=== PATIENT | male | born 1990 | race Two or more races ===

== ENCOUNTER 2018-01-24 09:23 | Emergency (ER) | payer SELFPAY | END 2018-01-24 10:35 | disposition home or self-care (01) | LOC: ER 09:23 | DX: J20.9 Acute bronchitis, unspecified (principal); J02.9 Acute pharyngitis, unspecified; J01.00 Acute maxillary sinusitis, unspecified; J01.10 Acute frontal sinusitis, unspecified; Z88.0 Allergy status to penicillin | CPT/HCPCS: 99283 ==

== ENCOUNTER 2018-02-03 09:28 | Emergency (ER) | payer SELFPAY ==
[2018-02-03 10:13] LABS: ADD MAN DIFF? NO
[2018-02-03 10:16] LABS: BASO % 1 % (0-3); EOS # 0.2 x10^3/uL (0.0-0.7); EOS % 4 % (0-3); HEMATOCRIT 44.5 % (39.0-53.0); HEMOGLOBIN 15.2 g/dL (13.0-17.5); LYMPH % 34 % (24-48); MEAN CORPUSCULAR HEMOGLOBIN 30 pg (25-35); MEAN CORPUSCULAR HGB CONC 34 g/dL (31-37); MEAN CORPUSCULAR VOLUME 87 fL (79-100); MONO # 0.6 x10^3/uL (0.0-1.1); MONO % 9 % (0-9); NEUT # 3.2 x10^3uL (1.8-7.7); NEUT % 53 % (31-73); PLATELET COUNT 234 x10^3/uL (140-400); RED BLOOD COUNT 5.14 x10^6/uL (4.30-5.70); RED CELL DISTRIBUTION WIDTH 12.9 % (11.5-14.5); WHITE BLOOD COUNT 6.1 x10^3/uL (4.0-11.0)
[2018-02-03 10:31] LABS: BILIRUBIN,URINE NEGATIVE (NEG); COLOR,URINE YELLOW; GLUCOSE,URINE NEGATIVE (NEG); NITRITE,URINE NEGATIVE (NEG); PH,URINE 5.5; PROTEIN,URINE NEGATIVE (NEG-TRACE); UROBILINOGEN,URINE 0.2 mg/dL (0.2 mg/dL)
[2018-02-03 10:39] LABS: BACTERIA,URINE 0 /HPF (0-FEW); RBC,URINE 0 /HPF (0-2); SPERM,URINE PRESENT /HPF; WBC,URINE OCC /HPF (0-4)
[2018-02-03 10:41] LABS: CLARITY,URINE CLEAR
[2018-02-03 10:55] LABS: ANION GAP 11 (6-14); BLOOD UREA NITROGEN 13 mg/dL (8-26); BUN/CREATININE RATIO 19 (6-20); CALCIUM 8.8 mg/dL (8.5-10.1); CARBON DIOXIDE 22 mmol/L (21-32); CHLORIDE 104 mmol/L (98-107); CREATININE 0.7 mg/dL (0.7-1.3); GFR 135.3; GLUCOSE 106 mg/dL (70-99); POTASSIUM 4.2 mmol/L (3.5-5.1); SODIUM 137 mmol/L (136-145)
[2018-02-03 11:01] LABS: ALBUMIN 3.7 g/dL (3.4-5.0); ALK PHOS 79 U/L (46-116); ALT (SGPT) 70 U/L (16-63); AST (SGOT) 35 U/L (15-37); TOTAL BILIRUBIN 0.6 mg/dL (0.2-1.0); TOTAL PROTEIN 7.4 g/dL (6.4-8.2)
[2018-02-03] MEDS: AZITHROMYCIN 250 MG TABLET. PO (11:43)
== END 2018-02-03 11:50 | disposition home or self-care (01) ==
LOC: ER 09:28
DX: R30.0 Dysuria (principal); R21 Rash and other nonspecific skin eruption; M54.5 Low back pain; Z87.442 Personal history of urinary calculi; Z88.0 Allergy status to penicillin
CPT/HCPCS: 36415; 80053; 81001; 85025; 87491; 87591; 99284; Q0144

== ENCOUNTER 2018-08-14 18:45 | Emergency (ER) | payer SELFPAY ==
[~2018-08-14] VITALS: Ht 180.3 cm; Wt 93.0 kg
[~2018-08-14 18:45] MED LIST: AZIT250T PO; BENZ100C PO; FLUT9.9S NS; PRED50TA PO; SULF1TAB24 PO; VENTOLIN HFA18 GM INH
[2018-08-14] MEDS ORDERED: IV NORMAL SALINE 1000ML BAG 1,000 ML IV ONE (19:30)
[2018-08-14] MEDS ORDERED: ONDANSETRON PF 4 MG/2 ML VIAL. IV ONE (19:30)
[2018-08-14 19:47] LABS: BASO % 0 % (0-3); EOS % 0 % (0-3); HEMATOCRIT 46.6 % (39.0-53.0); HEMOGLOBIN 16.1 g/dL (13.0-17.5); LYMPH # 0.6 x10^3/uL (1.0-4.8); LYMPH % 5 % (24-48); MEAN CORPUSCULAR HEMOGLOBIN 30 pg (25-35); MEAN CORPUSCULAR HGB CONC 35 g/dL (31-37); MEAN CORPUSCULAR VOLUME 87 fL (79-100); MONO # 0.6 x10^3/uL (0.0-1.1); MONO % 5 % (0-9); NEUT % 91 % (31-73); PLATELET COUNT 273 x10^3/uL (140-400); RED BLOOD COUNT 5.35 x10^6/uL (4.30-5.70); RED CELL DISTRIBUTION WIDTH 13.2 % (11.5-14.5); WHITE BLOOD COUNT 13.2 x10^3/uL (4.0-11.0)
[2018-08-14 19:58] LABS: CALCIUM 9.2 mg/dL (8.5-10.1); CREATININE 1.2 mg/dL (0.7-1.3); GFR 72.6; POTASSIUM 3.9 mmol/L (3.5-5.1)
[2018-08-14 20:00] VITALS: BP 130/73
[2018-08-14 20:03] LABS: ALBUMIN 4.1 g/dL (3.4-5.0); ALBUMIN/GLOBULIN RATIO 0.9 (1.0-1.7); TOTAL BILIRUBIN 0.5 mg/dL (0.2-1.0); TOTAL PROTEIN 8.6 g/dL (6.4-8.2)
[2018-08-14 20:05] LABS: % BANDS 2 % (0-9); % LYMPHS 4 % (24-48); % MONOS 4 % (0-10); % SEGS 90 % (35-66); PLT ESTIMATE ADEQUATE (ADEQUATE)
[2018-08-14] MEDS ORDERED: ONDA4TAB7 PO (20:19)
--- NOTE | 2018-08-14 20:51 | PHYS DOC ---
Past Medical History Past Medical History: No Pertinent History, Other Additional Past Medical Histor: bronchitis Past Surgical History: No Surgical History Alcohol Use: None Drug Use: None Adult General Chief Complaint Chief Complaint: NAUSEA/VOMITING/DIARRHA HPI HPI Patient is a 27 year old is male presenting with nausea vomiting and diarrhea greater than 10 episodes of both no abdominal pain just some nausea and nonbloody it's important prior to the onset symptoms mother is an ER with identical symptoms. Review of Systems Review of Systems Constitutional: Denies fever or chills [] Eyes: Denies change in visual acuity, redness, or eye pain [] HENT: Denies nasal congestion or sore throat [] Respiratory: Denies cough or shortness of breath [] Musculoskeletal: Denies back pain or joint pain [] Integument: Denies rash or skin lesions [] Neurologic: Denies headache, focal weakness or sensory changes [] Endocrine: Denies polyuria or polydipsia [] All other systems were reviewed and found to be within normal limits, except as documented in this note. Current Medications Current Medications Current Medications Medications (Trade) Dose Ordered Sig/Laura Start Time Stop Time Status Last Admin Dose Admin Ondansetron HCl (Zofran) 4 mg 1X ONCE 08/14/18 19:30 08/14/18 19:32 DC 08/14/18 19:44 4 MG Sodium Chloride 1,000 ml @ 1,000 mls/hr 1X ONCE 08/14/18 19:30 08/14/18 20:29 DC 08/14/18 19:43 1,000 MLS/HR Allergies Allergies Allergies Coded Allergies Type Severity Reaction Last Updated Verified Penicillins Allergy Intermediate HIVES 01/24/18 Yes Physical Exam Physical Exam Constitutional: Well developed, well nourished, no acute distress, non-toxic appearance. [] HENT: Normocephalic, atraumatic, bilateral external ears normal, oropharynx moist, no oral exudates, nose normal. [] Eyes: PERRLA, EOMI, conjunctiva normal, no discharge. [] Neck: Normal range of motion, no tenderness, supple, no stridor. [] Pulmonary: Normal respiratory effort no increased work of breathing no obvious chest wall trauma Abdomen: Bowel sounds normal, soft, no tenderness, no masses, no pulsatile masses. Dry Skin: Warm, dry, no erythema, no rash. [] Back: No tenderness, no CVA tenderness. [] Extremities: No tenderness, no cyanosis, no clubbing, ROM intact, no edema. [] Neurologic: Alert and oriented X 3, normal motor function, normal sensory function, no focal deficits noted. [] Psychologic: Affect normal, judgement normal, mood normal. [] Current Patient Data Vital Signs Vital Signs Date Time Temp Pulse Resp B/P (MAP) Pulse Ox O2 Delivery O2 Flow Rate FiO2 08/14/18 20:00 95 18 130/73 (92) 99 08/14/18 19:18 98.6 Room Air 98.6 Lab Values Laboratory Tests Test 08/14/18 19:34 White Blood Count 13.2 x10^3/uL (4.0-11.0) H Red Blood Count 5.35 x10^6/uL (4.30-5.70) Hemoglobin 16.1 g/dL (13.0-17.5) Hematocrit 46.6 % (39.0-53.0) Mean Corpuscular Volume 87 fL (79-100) Mean Corpuscular Hemoglobin 30 pg (25-35) Mean Corpuscular Hemoglobin Concent 35 g/dL (31-37) Red Cell Distribution Width 13.2 % (11.5-14.5) Platelet Count 273 x10^3/uL (140-400) Neutrophils (%) (Auto) 91 % (31-73) H Lymphocytes (%) (Auto) 5 % (24-48) L Monocytes (%) (Auto) 5 % (0-9) Eosinophils (%) (Auto) 0 % (0-3) Basophils (%) (Auto) 0 % (0-3) Neutrophils # (Auto) 12.0 x10^3uL (1.8-7.7) H Lymphocytes # (Auto) 0.6 x10^3/uL (1.0-4.8) L Monocytes # (Auto) 0.6 x10^3/uL (0.0-1.1) Eosinophils # (Auto) 0.0 x10^3/uL (0.0-0.7) Basophils # (Auto) 0.0 x10^3/uL (0.0-0.2) Segmented Neutrophils % 90 % (35-66) H Band Neutrophils % 2 % (0-9) Lymphocytes % 4 % (24-48) L Monocytes % 4 % (0-10) Platelet Estimate Adequate (ADEQUATE) Sodium Level 140 mmol/L (136-145) Potassium Level 3.9 mmol/L (3.5-5.1) Chloride Level 102 mmol/L (98-107) Carbon Dioxide Level 27 mmol/L (21-32) Anion Gap 11 (6-14) Blood Urea Nitrogen 19 mg/dL (8-26) Creatinine 1.2 mg/dL (0.7-1.3) Estimated GFR (Cockcroft-Gault) 72.6 BUN/Creatinine Ratio 16 (6-20) Glucose Level 112 mg/dL (70-99) H Calcium Level 9.2 mg/dL (8.5-10.1) Total Bilirubin 0.5 mg/dL (0.2-1.0) Aspartate Amino Transferase (AST) 20 U/L (15-37) Alanine Aminotransferase (ALT) 51 U/L (16-63) Alkaline Phosphatase 64 U/L (46-116) Total Protein 8.6 g/dL (6.4-8.2) H Albumin 4.1 g/dL (3.4-5.0) Albumin/Globulin Ratio 0.9 (1.0-1.7) L Laboratory Tests 08/14/18 19:34 Laboratory Tests 08/14/18 19:34 EKG EKG [] Radiology/Procedures Radiology/Procedures [] Course & Med Decision Making Course & Med Decision Making Pertinent Labs and Imaging studies reviewed. (See chart for details) []Nausea vomiting and diarrhea very well-appearing male mom checked into the ER with the identical symptoms and he is feeling better after IV fluids labs are unremarkable suspect food borne versus viral return precautions discussed and he voiced understanding Dragon Disclaimer Dragon Disclaimer This electronic medical record was generated, in whole or in part, using a voice recognition dictation system. Departure Departure Impression: Primary Impression: Nausea vomiting and diarrhea Disposition: 01 HOME, SELF-CARE Condition: STABLE Patient Instructions: Nausea and Vomiting, [id number] Scripts Ondansetron Hcl (ZOFRAN) 4 Mg Tablet 4 MG PO PRN TID PRN for NAUSEA/VOMITING, #15 nausea/vomiting Prov: DAVID CHOW MD 08/14/18 DAVID CHOW MD Aug 14, 2018 20:51
== END 2018-08-14 20:32 | disposition home or self-care (01) ==
LOC: ER 18:45
DX: R11.2 Nausea with vomiting, unspecified (principal); R19.7 Diarrhea, unspecified; Z88.0 Allergy status to penicillin
CPT/HCPCS: 36415; 80053; 85007; 85025; 96361; 96374; 99283; J2405; J7030

== ENCOUNTER 2018-10-03 19:11 | Emergency (ER) | payer SELFPAY ==
[~2018-10-03] VITALS: Ht 177.8 cm; Wt 97.1 kg
[~2018-10-03 19:11] MED LIST changes: +ONDA4TAB7 PO
[2018-10-03] MEDS ORDERED: fentaNYL PF VIAL 100 MCG/2 ML VIAL IV ONE (20:00)
[2018-10-03] MEDS ORDERED: IV NORMAL SALINE 1000ML BAG 1,000 ML IV ONE (20:00)
[2018-10-03] MEDS ORDERED: LIDO:MAALOX 1:1 20 ML SINGLE DOSE. SWSW ONE (20:00)
[2018-10-03 20:20] LABS: BASO # 0.1 x10^3/uL (0.0-0.2); BASO % 0 % (0-3); EOS # 0.1 x10^3/uL (0.0-0.7); EOS % 1 % (0-3); HEMATOCRIT 46.1 % (39.0-53.0); HEMOGLOBIN 15.3 g/dL (13.0-17.5); LYMPH # 3.1 x10^3/uL (1.0-4.8); LYMPH % 24 % (24-48); MEAN CORPUSCULAR HEMOGLOBIN 29 pg (25-35); MEAN CORPUSCULAR HGB CONC 33 g/dL (31-37); MEAN CORPUSCULAR VOLUME 86 fL (79-100); MONO # 0.8 x10^3/uL (0.0-1.1); MONO % 6 % (0-9); NEUT # 8.8 x10^3uL (1.8-7.7); NEUT % 69 % (31-73); PLATELET COUNT 264 x10^3/uL (140-400); RED BLOOD COUNT 5.33 x10^6/uL (4.30-5.70); RED CELL DISTRIBUTION WIDTH 12.8 % (11.5-14.5); WHITE BLOOD COUNT 12.8 x10^3/uL (4.0-11.0)
[2018-10-03 20:21] LABS: BILIRUBIN,URINE NEGATIVE (NEG); CLARITY,URINE CLEAR; COLOR,URINE YELLOW; NITRITE,URINE NEGATIVE (NEG); PH,URINE 6.5; PROTEIN,URINE NEGATIVE (NEG-TRACE); UROBILINOGEN,URINE 0.2 mg/dL (0.2 mg/dL)
--- NOTE | 2018-10-03 20:30 | PHYS DOC ---
Past Medical History Past Medical History: No Pertinent History, Other Additional Past Medical Histor: bronchitis Past Surgical History: No Surgical History Alcohol Use: None Drug Use: None Adult General Chief Complaint Chief Complaint: ABDOMINAL PAIN HPI HPI Patient is a 27 year old m with cc of abdominal pain luq and periumbilical has had it on and off worse after eaeting feels it in the back worrieda bout the pancreas family member had that. today sitting up out of dentist chair got hit with a strong cramp was way worse than usual worse now no fever no vomiting Review of Systems Review of Systems Constitutional: Denies fever or chills [] Eyes: Denies change in visual acuity, redness, or eye pain [] HENT: Denies nasal congestion or sore throat [] Respiratory: Denies cough or shortness of breath [] Cardiovascular: No additional information not addressed in HPI [] GI: Integument: Denies rash or skin lesions [] Neurologic: Denies headache, focal weakness or sensory changes [] Endocrine: Denies polyuria or polydipsia [] All other systems were reviewed and found to be within normal limits, except as documented in this note. Current Medications Current Medications Current Medications Medications (Trade) Dose Ordered Sig/Laura Start Time Stop Time Status Last Admin Dose Admin Azithromycin (Zithromax) 1,000 mg 1X ONCE 10/03/18 21:00 10/03/18 21:01 DC 10/03/18 21:29 1,000 MG Ceftriaxone Sodium (Rocephin) 1 gm 1X ONCE 10/03/18 21:30 10/03/18 21:31 DC 10/03/18 21:30 1 GM Fentanyl Citrate (Fentanyl 2ml Vial) 50 mcg 1X ONCE 10/03/18 20:00 10/03/18 20:02 DC 10/03/18 20:26 50 MCG Info (CONTRAST GIVEN -- Rx MONITORING) 1 each PRN DAILY PRN 10/03/18 21:15 10/03/18 22:17 DC Iohexol (Omnipaque 300 Mg/ml) 75 ml 1X ONCE 10/03/18 21:15 10/03/18 21:16 DC 10/03/18 21:20 75 ML Multi-Ingredient Mouthwash/Gargle (Gi Cocktail) 20 ml 1X ONCE 10/03/18 20:00 10/03/18 21:08 DC 10/03/18 20:25 20 ML Sodium Chloride 1,000 ml @ 1,000 mls/hr 1X ONCE 10/03/18 20:00 10/03/18 20:59 DC 10/03/18 20:25 1,000 MLS/HR Allergies Allergies Allergies Coded Allergies Type Severity Reaction Last Updated Verified Penicillins Allergy Intermediate HIVES 01/24/18 Yes Physical Exam Physical Exam Constitutional: Well developed, well nourished, no acute distress, non-toxic appearance. [] HENT: Normocephalic, atraumatic, bilateral external ears normal, oropharynx moist, no oral exudates, nose normal. [] Eyes: PERRLA, EOMI, conjunctiva normal, no discharge. [] Neck: Normal range of motion, no tenderness, supple, no stridor. [] Abdomen: Bowel sounds normal, soft, epigastric and luq tenderness, no masses, no pulsatile masses. [] Skin: Warm, dry, no erythema, no rash. [] Extremities: No tenderness, no cyanosis, no clubbing, ROM intact, no edema. [] Neurologic: Alert and oriented X 3, normal motor function, normal sensory function, no focal deficits noted. [] Psychologic: Affect normal, judgement normal, mood normal. [] Current Patient Data Vital Signs Vital Signs Date Time Temp Pulse Resp B/P (MAP) Pulse Ox O2 Delivery O2 Flow Rate FiO2 10/03/18 21:51 78 20 148/77 (100) 99 Room Air 10/03/18 19:41 98.2 98.2 Lab Values Laboratory Tests Test 10/03/18 20:05 10/03/18 20:12 Urine Collection Type Unknown Urine Color Yellow Urine Clarity Clear Urine pH 6.5 Urine Specific [place] 1.015 Urine Protein Negative mg/dL (NEG-TRACE) Urine Glucose (UA) Negative mg/dL (NEG) Urine Ketones (Stick) Negative mg/dL (NEG) Urine Blood Negative (NEG) Urine Nitrite Negative (NEG) Urine Bilirubin Negative (NEG) Urine Urobilinogen Dipstick 0.2 mg/dL (0.2 mg/dL) Urine Leukocyte Esterase Moderate (NEG) Urine RBC 0 /HPF (0-2) Urine WBC 20-40 /HPF (0-4) Urine Bacteria 0 /HPF (0-FEW) White Blood Count 12.8 x10^3/uL (4.0-11.0) H Red Blood Count 5.33 x10^6/uL (4.30-5.70) Hemoglobin 15.3 g/dL (13.0-17.5) Hematocrit 46.1 % (39.0-53.0) Mean Corpuscular Volume 86 fL (79-100) Mean Corpuscular Hemoglobin 29 pg (25-35) Mean Corpuscular Hemoglobin Concent 33 g/dL (31-37) Red Cell Distribution Width 12.8 % (11.5-14.5) Platelet Count 264 x10^3/uL (140-400) Neutrophils (%) (Auto) 69 % (31-73) Lymphocytes (%) (Auto) 24 % (24-48) Monocytes (%) (Auto) 6 % (0-9) Eosinophils (%) (Auto) 1 % (0-3) Basophils (%) (Auto) 0 % (0-3) Neutrophils # (Auto) 8.8 x10^3uL (1.8-7.7) H Lymphocytes # (Auto) 3.1 x10^3/uL (1.0-4.8) Monocytes # (Auto) 0.8 x10^3/uL (0.0-1.1) Eosinophils # (Auto) 0.1 x10^3/uL (0.0-0.7) Basophils # (Auto) 0.1 x10^3/uL (0.0-0.2) Sodium Level 142 mmol/L (136-145) Potassium Level 4.0 mmol/L (3.5-5.1) Chloride Level 103 mmol/L (98-107) Carbon Dioxide Level 29 mmol/L (21-32) Anion Gap 10 (6-14) Blood Urea Nitrogen 10 mg/dL (8-26) Creatinine 0.9 mg/dL (0.7-1.3) Estimated GFR (Cockcroft-Gault) 101.2 BUN/Creatinine Ratio 11 (6-20) Glucose Level 91 mg/dL (70-99) Calcium Level 9.1 mg/dL (8.5-10.1) Total Bilirubin 0.3 mg/dL (0.2-1.0) Aspartate Amino Transferase (AST) 30 U/L (15-37) Alanine Aminotransferase (ALT) 68 U/L (16-63) H Alkaline Phosphatase 76 U/L (46-116) Total Protein 7.8 g/dL (6.4-8.2) Albumin 4.3 g/dL (3.4-5.0) Albumin/Globulin Ratio 1.2 (1.0-1.7) Lipase 103 U/L (73-393) Laboratory Tests 10/03/18 20:12 Laboratory Tests 10/03/18 20:12 EKG EKG [] Radiology/Procedures Radiology/Procedures [] Impressions: 3. Use of iterative reconstruction technique. Findings: Images through the lung bases demonstrate minimal dependent subsegmental atelectasis bilaterally. The liver parenchyma has a decreased attenuation consistent with fatty infiltration. The spleen, pancreas, adrenal glands and kidneys are within normal limits. The abdominal aorta tapers normally. The gallbladder is contracted. No free fluid or free air is seen within the abdomen. There is no evidence of bowel obstruction. Air and stool seen throughout the colon. The appendix is well-visualized and is within normal limits. Images through the pelvis demonstrate the urinary bladder distended with urine. No free fluid is seen. Minimal S-shaped curvature of the thoracolumbar spine is noted IMPRESSION: No acute abnormality is seen. Who Course & Med Decision Making Course & Med Decision Making Pertinent Labs and Imaging studies reviewed. (See chart for details) luq pain epigastric pain consider pancreatitis some periumbilical query [id number] appy labs, ct scan ct neg pyuria noted no dysuria ctx/azithro given, bactrim rx advised safe sex precatuions gc/chlam pending pt had multiple tests at last year for same pain, egd, capsule endoscopy ct all normal maybe this is gastritis? advised otc antacid, work on diet etc Dragon Disclaimer Dragon Disclaimer This electronic medical record was generated, in whole or in part, using a voice recognition dictation system. Departure Departure Impression: Primary Impression: Abdominal pain Disposition: HOME, SELF-CARE Condition: STABLE Referrals: NO PCP (PCP) Scripts Sulfamethoxazole/Trimethoprim (BACTRIM DS TABLET) 1 Each Tablet 1 TAB PO BID, #20 TAB Prov: DAVID CHOW MD 10/03/18 DAVID CHOW MD Oct 03, 2018 20:30
[2018-10-03 20:32] LABS: BACTERIA,URINE 0 /HPF (0-FEW); RBC,URINE 0 /HPF (0-2); WBC,URINE 20-40 /HPF (0-4)
[2018-10-03 20:33] LABS: CALCIUM 9.1 mg/dL (8.5-10.1); CREATININE 0.9 mg/dL (0.7-1.3); GFR 101.2
[2018-10-03 20:40] LABS: ALBUMIN 4.3 g/dL (3.4-5.0); ALBUMIN/GLOBULIN RATIO 1.2 (1.0-1.7); TOTAL BILIRUBIN 0.3 mg/dL (0.2-1.0); TOTAL PROTEIN 7.8 g/dL (6.4-8.2)
[2018-10-03] MEDS ORDERED: AZITHROMYCIN 250 MG TABLET. PO ONE (21:00)
[2018-10-03] MEDS ORDERED: IOHEXOL 300 MG/ML 100ML VIAL. IV ONE (21:15)
[2018-10-03] MEDS ORDERED: CONTRAST GIVEN. MC PRN (21:15)
[2018-10-03] MEDS ORDERED: cefTRIAXone IV Push 1 GM VIAL. IVP ONE (21:30)
--- NOTE | 2018-10-03 21:46 | RAD ---
CT scan abdomen and pelvis with contrast 10/03/2018 CLINICAL HISTORY: Severe mid abdominal pain. TECHNIQUE: After the intravenous administration of 75 cc of Omnipaque 300, was, 5 mm axial sections were obtained through abdomen and pelvis. One or more of the following individualized dose reduction techniques were utilized for this study: 1. Automated exposure control. 2. Adjustment of the mA and/or kV according to patient size. 3. Use of iterative reconstruction technique. Findings: Images through the lung bases demonstrate minimal dependent subsegmental atelectasis bilaterally. The liver parenchyma has a decreased attenuation consistent with fatty infiltration. The spleen, pancreas, adrenal glands and kidneys are within normal limits. The abdominal aorta tapers normally. The gallbladder is contracted. No free fluid or free air is seen within the abdomen. There is no evidence of bowel obstruction. Air and stool seen throughout the colon. The appendix is well-visualized and is within normal limits. Images through the pelvis demonstrate the urinary bladder distended with urine. No free fluid is seen. Minimal S-shaped curvature of the thoracolumbar spine is noted IMPRESSION: No acute abnormality is seen. Electronically signed by: Adalberto Botello MD (10/03/2018 9:43 PM) [facility]
[2018-10-03 21:51] VITALS: BP 148/77
[2018-10-03] MEDS ORDERED: SULF1TAB24 PO (22:06)
== END 2018-10-03 22:09 | disposition home or self-care (01) ==
LOC: ER 19:11
DX: R10.12 Left upper quadrant pain (principal); R10.33 Periumbilical pain; Z88.0 Allergy status to penicillin
CPT/HCPCS: 36415; 74177; 80053; 81001; 83690; 85025; 87086; 87491; 87591; 96374; 96375; 99284; J0696; J3010; J7030; Q0144; Q9967; 96361